=== PATIENT | female | born 1985 | race Two or more races ===

== ENCOUNTER → 2024-07-30 | Outpatient (CLI) | payer OTHER, SELFPAY ==
[2024-07-27 15:39] LABS: Basophils % (Auto) 0 % (0-2.5); Eosinophils # (Auto) 0.1 Thou/mm3 (0.0-0.5); Eosinophils % (Auto) 2 % (0-10); Hematocrit 37.4 % (36.0-46.0); Hemoglobin 12.3 g/dL (12.0-16.0); Immature Granulocytes % (Auto) 0 % (0-0); Immature Granulocytes Auto 0.01 Thou/mm3 (0.00-0.00); Lymphocytes # (Auto) 1.9 Thou/mm3 (1.0-4.8); Lymphocytes % (Auto) 35 % (10-50); Mean Corpuscular HGB Conc 32.9 g/dl (31.0-37.0); Mean Corpuscular Hemoglobin 28.3 pg (25.0-35.0); Mean Corpuscular Volume 86 fL (80-100); Monocytes # (Auto) 0.5 Thou/mm3 (0.0-0.8); Monocytes % (Auto) 9 % (0-12); Neutrophils # (Auto) 2.9 Thou/mm3 (1.8-7.7); Neutrophils % (Auto) 54 % (37-80); Nucleated Red Blood Cell % 0 /100 WBC (0); Platelet Count 241 Thou/mm3 (140-440); RDW Standard Deviation 41.5 fL (36.4-46.3); Red Blood Count 4.35 Miln/mm3 (4.00-5.20); White Blood Count 5.4 Thou/mm3 (3.6-11.0)
[2024-07-27 15:47] LABS: HCG,Qualitative Serum Negative
[2024-07-27 15:48] LABS: Partial Thromboplastin Time 27.1 Seconds (22.0-36.0); Prothrombin Time 11.2 Seconds (9.0-12.2)
--- NOTE | 2024-07-30 08:30 | XR_ITS ---
Examinations: Ultrasound-guided percutaneous breast biopsy, left breast 2:00 nodule Left breast sonography limited INDICATIONS: Left breast sonogram 05/01/2024 BI-RADS 4 suspicious nodule 2:00 position left breast. Exam date and time: July 30, 2024 0931 hours. Informed consent provided. Technique: A timeout was completed verifying correct patient, procedure, site, positioning, and special equipment if applicable Informed consent provided. The patient was placed in a supine position for the breast biopsy. Sonographic images of the breast were performed for localization of the suspicious nodule The patient's breast was prepped and draped in sterile fashion. Maximum sterile barrier technique, hand hygiene, ultrasound sterile technique 1% lidocaine was used to anesthetize the skin and breast adjacent to the suspicious nodule. Utilizing ultrasonographic guidance, 8 core biopsies were obtained of the suspicious nodule utilizing an 18-gauge BioPince needle. The specimens appears satisfactory. US guided breast biopsy marker placement. Estimated blood loss 3 cc. The patient tolerated the procedure well and there were no complications. Impression: Successful ultrasound-guided percutaneous breast biopsy, left breast 2:00 nodule. Ultrasound guided breast biopsy marker placement.
== END | disposition home or self-care (01) ==
LOC: SIRX 08:39
PROVIDERS: Radiology Diagnostic Radiology; PCP Internal Medicine; Referring Provider Internal Medicine; Visit Provider Internal Medicine
DX: N63.21 Unspecified lump in the left breast, upper outer quadrant (principal); Z01.812 Encounter for preprocedural laboratory examination
CPT/HCPCS: 19083; 36415; 84703; 85025; 85610; 85730; A4648

== ENCOUNTER → 2024-08-17 | Outpatient (CLI) | payer OTHER, SELFPAY ==
--- NOTE | 2024-08-17 07:00 | XR_ITS ---
Examination: MRI lumbar spine without contrast Date and time of exam: August 17, 2024 0744 hours INDICATIONS: Lower back pain radiating to both legs 3 years, worse the last year Technique: Multiple MRI axial and sagittal sections lumbar spine. Sagittal T2-weighted images, TR 3500, TE 118 T1 weighted transverse sections, TR 688 T8.5, T2-weighted sagittal sections T1 weighted sagittal sections TR 621, TE 30 T2 axial sections, TR 4, 190, TE 84. Findings: Adequate alignment lumbar vertebral bodies No lumbar fracture Disc desiccation L3-L4, L5-S1 Moderate disc narrowing posteriorly L5-S1 L5-S1 6 mm central left paracentral disc bulge contiguous with the left S1 nerve root L4-L5 no disc protrusion L3-L4 no disc protrusion L2-L3 no disc protrusion L1-L2 to millimeters central disc bulge IMPRESSION: L5-S1 6 mm central left paracentral disc bulge contiguous with the left S1 nerve root
== END | disposition home or self-care (01) ==
PROVIDERS: PCP Family Medicine; Referring Provider Family Medicine; Visit Provider Family Medicine
DX: M51.379 Other intervertebral disc degeneration, lumbosacral region without mention of lumbar back pain or lower extremity pain (principal)
CPT/HCPCS: 72148

== ENCOUNTER 2024-12-14 07:44 | Emergency (ER) | payer OTHER, SELFPAY ==
[2024-12-14 07:44] VITALS: BMI 41.5
--- NOTE | 2024-12-14 07:51 | XR_ITS ---
Examination: Complete OB ultrasound, less than 14 weeks, transabdominal Date and time of exam: December 14, 2024 0905 hours INDICATIONS: Vaginal bleeding lower abdominal pain today Technique: Obstetrical ultrasound images less than 14 weeks performed via transabdominal imaging Findings: Uterus 10.7 cm, intrauterine gestational sac 0.6 cm corresponding to 5 weeks 2 days gestational age No pole, no cardiac activity Right ovary 2.6 cm arterial flow Left ovary 3.4 cm arterial flow IMPRESSION: Empty intrauterine gestational sac corresponding to 5 weeks 2 days gestational age No pole, no cardiac activity Recommend short-term follow-up pelvic sonography to document viability
[2024-12-14 07:55] VITALS: BP 114/72; PULSE 81; RESP 18; TEMP 37; O2SAT 98
[2024-12-14 08:40] LABS: Basophils % (Auto) 0 % (0-2.5); Eosinophils # (Auto) 0.1 Thou/mm3 (0.0-0.5); Eosinophils % (Auto) 0 % (0-10); Hematocrit 37.4 % (36.0-46.0); Hemoglobin 12.9 g/dL (12.0-16.0); Immature Granulocytes % (Auto) 0 % (0-0); Immature Granulocytes Auto 0.04 Thou/mm3 (0.00-0.00); Lymphocytes # (Auto) 1.5 Thou/mm3 (1.0-4.8); Lymphocytes % (Auto) 14 % (10-50); Mean Corpuscular HGB Conc 34.5 g/dl (31.0-37.0); Mean Corpuscular Hemoglobin 28.9 pg (25.0-35.0); Mean Corpuscular Volume 84 fL (80-100); Monocytes # (Auto) 0.4 Thou/mm3 (0.0-0.8); Monocytes % (Auto) 4 % (0-12); Neutrophils # (Auto) 9.2 Thou/mm3 (1.8-7.7); Neutrophils % (Auto) 82 % (37-80); Nucleated Red Blood Cell % 0 /100 WBC (0); Platelet Count 273 Thou/mm3 (140-440); Red Blood Count 4.47 Miln/mm3 (4.00-5.20); White Blood Count 11.2 Thou/mm3 (3.6-11.0)
[2024-12-14 08:40] LABS: Collection Type, Urine Clean Catch
--- NOTE | 2024-12-14 08:40 | EDNOTE_ITS ---
<Statement entered by Christy Dhaliwal MD - 12/25/24 01:06> I, Christy Dhaliwal MD, have reviewed the history, exam, and assessment of the patient. I have evaluated the patient independently and agree with the plan of care documented by [ ]. All diagnostic studies were reviewed and discussed. I confirm the diagnosis as documented by the Resident. I was present during the Medical Decision Making for this patient. The patient's plan of care was created between myself and the Resident and consistent with our discussion of the patient's case. ED Abdominal Pain RME/HPI General Chief Complaint: Vaginal Bleeding Stated complaint: 6WK PREG, LOWER ABD PAIN AND SPOTTING Time seen by provider: 12/14/24 07:47 Arrival date/time: 12/14/24 07:44 RME / HPI RME / HPI narrative: The patient is a 39-year-old female with past medical history significant for diverticulitis presented to ED with chief complaint of severe left lower abdominal pain associated with mild vaginal bleeding. She reported that starting this morning she started having severe abdominal pain 8/10 in intensity, with no aggravating or relieving factors, associated with nausea and nonbilious vomiting including chills. She had her normal bowel movement yesterday morning. She denied any headache, lightheadedness, chest pain, SOB, any changes in urinary habit or leg swelling. Related Data Previous Rx's ?Medication ?Instructions ?Recorded dicyclomine 20 mg tablet 20 mg PO QID PRN abdominal p ain 12/21/23 #30 tabs pantoprazole 40 mg tablet,delayed 40 mg PO QDAY #30 ta bs 12/21/23 release (Protonix) acetaminophen 500 mg tablet 500 mg PO Q6H PRN pain #14 tabs 12/14/24 Allergies Allergy/AdvReac Type Severity Reaction Status Date / Time No Known Allergies Allergy Verified 12/14/24 07:46 Review of Systems Review of Systems Systems Reviewed: All systems reviewed, normal except as documented (Above) Past Medical History Past Medical History MUSCULOSKELETAL: Positive Arthritis (back) Family History FAMILY HISTORY: Positive Family Cardiac Disorders (dad- htn) and Family Cancer (mom- thyroid cancer); Negative Family Anesthesia Reaction Surgical History SURGICAL: Positive Oral Surgery (wisdom teeth removed) Social History SMOKING STATUS: Never smoker ED Exam Narrative Physical exam: General: Cooperative female, no acute distress, Alert and Oriented x 3 HEENT: Moist mucous membranes, oropharynx clear Neck: Supple, No masses, No JVD CVS: S1S2 Regular rate and rhythm, No murmurs, rubs or gallops Lungs: Clear to auscultation with no accessory use, no wheeze no rhonchi Abd: Soft, tenderness more over left lower quadrant, but diffuse tenderness throughout abdomen/ND, +BS, no organomegaly Ext: No edema, warm and well perfused Skin: No rash Psych: Appropriate mood and affect Course Quality Measures none Orders Category Date Time Status Insert IV NOW Care 12/14/24 07:59 Active US OB <= 14 weeks fetus Stat Exams 12/14/24 07:51 Completed US abdomen limited Stat Exams 12/14/24 08:41 Completed ABO/RH Type Stat Lab 12/14/24 08:03 Completed Beta HCG,Quantitative Stat Lab 12/14/24 08:03 Completed CBC Stat Lab 12/14/24 08:03 Completed Comprehensive Metabolic Panel Stat Lab 12/14/24 08:03 Completed Lipase Stat Lab 12/14/24 08:03 Completed Magnesium Stat Lab 12/14/24 08:03 Completed Phosphorous Stat Lab 12/14/24 08:03 Completed UA [Urinalysis] Stat Lab 12/14/24 08:33 Completed Urine Culture Stat Lab 12/14/24 08:33 Received Acetaminophen Tab [Tylenol ES Tab] Med 12/14/24 07:59 Discontinued 1,000 mg PO X1 ONE Ampicillin/Sulbac Inj [Unasyn Inj] 3 gm Med 12/14/24 08:58 Discontinued Sodium Chloride 0.9% (Pop) [NS 0.9% mini bag] 100 ml IV X1 Metoclopramide Inj [Reglan Inj] Med 12/14/24 07:59 Discontinued 10 mg IVP X1 ONE Morphine Inj Med 12/14/24 08:33 Discontinued 4 mg IVP X1 ONE Ondansetron Inj [Zofran Inj] Med 12/14/24 08:28 Discontinued 4 mg IVP X1 ONE Sodium Chloride 0.9% 1000 ml [Ns] 1,000 ml Med 12/14/24 07:59 Discontinued IV 999 mls/hr cefTRIAXone [Rocephin] 2 gm Med 12/14/24 08:38 Discontinued SODIUM CHLORIDE 0.9% (Popper) [Ns 0.9% (P)] 50 ml IV X1 metroNIDAZOLE/NS 500 MG IVPB [Flagyl 500 mg IV] Med 12/14/24 08:38 Discontinued 500 mg in 100 ml IV Q8HR Vital Signs Vital signs: Vital Signs Temperature 98.6 F 12/14/24 07:55 Pulse Rate 81 12/14/24 07:55 Respiratory Rate 18 12/14/24 07:55 Blood Pressure 114/72 12/14/24 07:55 Pulse Oximetry (%) 98 12/14/24 07:55 Oxygen Delivery Method Room Air 12/14/24 07:55 Abdominal Pain MDM MDM Narrative MDM Narrative:: The patient is a 39-year-old female with past medical history significant for diverticulitis presented to ED with chief complaint of severe left lower abdominal pain associated with mild vaginal bleeding. She reported that startin g this morning she started having severe abdominal pain 8/10 in intensity, with no aggravating or relieving factors, associated with nausea and nonbilious vomiting including chills. She had her normal bowel movement yesterday morning. She denied any headache, lightheadedness, chest pain, SOB, any changes in urinary habit or leg swelling. Her initial vitals were blood pressure 114/72, pulse 81, 18, temperature 98.6, saturating 98% on room air. Labs revealed white count of 11.2, sodium 134, potassium 3.8, blood sugar 111, with electrolytes WNL, and beta-hCG level of 4128. UA revealed pH 8.0, negative for UTI. ultrasound revealed Empty intrauterine gestational sac corresponding to 5 weeks 2 days gestational age, no pole, no cardiac activity. Distended bowel loops in the left mid abdomen observed in US abdomen. The patient received 1 L of bolus normal saline, IV ondansetron 4 mg x 1, morphine sulfate 4 mg IV x 1, and ampicillin sulbactam 3 g IV x 1. The patient was able to tolerate oral diet. She was planned to discharge home. The patient's management plan was discussed with my attending physician MD Martin Quintanilla MD, PGY2 Patient data External records reviewed:: [facility] previous records Clinical information provided by:: patient Social determinants that could affect healthcare access:: none Patient has the following chronic illnesses:: See above How is presenting disease/condition affected by chronic disease/condition?: uneffected by Evaluation data The following diagnostics were reviewed and interpreted by me:: lab results and radiology exam(s) Lab and/or radiology exams considered but not ordered:: None Interpretation Summary: See above Medications / Prescriptions Medications or Prescriptions considered but not ordered:: None Medication administrations:: Medication Administration History Discontinued Medications Acetaminophen (Acetaminophen 500 Mg Tablet) 1,000 mg PO X1 ONE Stop: 12/14/24 08:00 Last Admin: 12/14/24 08:50 Dose: Not Given Documented By: DO Non-Admin Reason: Cancelled by Provider Sodium Chloride (Ns) 1,000 mls @ 999 mls/hr IV .Q1H1M ONE Stop: 12/14/24 08:59 Last Admin: 12/14/24 08:46 Dose: 999 mls/hr Documented By: DO Ceftriaxone Sodium 2 gm/ (Sodium Chloride) 50 mls @ 100 mls/hr IV X1 ONE Stop: 12/14/24 09:07 Last Admin: 12/14/24 09:20 Dose: Not Given Documented By: DO Non-Admin Reason: Cancelled by Provider Metronidazole (Flagyl 500 Mg Iv) 500 mg in 100 mls @ 200 mls/hr IV Q8HR OBINNA Stop: 12/21/24 08:37 Last Admin: 12/14/24 09:20 Dose: Not Given Documented By: DO Non-Admin Reason: Cancelled by Provider Ampicillin Sodium/Sulbactam (Sodium 3 gm/ Sodium Chloride) 100 mls @ 200 mls/hr IV X1 ONE Stop: 12/14/24 08:59 Last Admin: 12/14/24 10:05 Dose: 200 mls/hr Documented By: DO Metoclopramide HCl (Metoclopramide Inj 5 Mg/Ml Vial 2 Ml) 10 mg IVP X1 ONE; Protocol Stop: 12/14/24 08:00 Last Admin: 12/14/24 08:51 Dose: Not Given Documented By: DO Non-Admin Reason: Cancelled by Provider Morphine Sulfate (Morphine Sulf Inj 10 Mg/Ml Vial) 4 mg IVP X1 ONE Stop: 12/14/24 08:34 Last Admin: 12/14/24 08:48 Dose: 4 mg Documented By: DO Ondansetron HCl (Ondansetron Inj 2 Mg/Ml Inj 2 Ml) 4 mg IVP X1 ONE; Protocol Stop: 12/14/24 08:29 Last Admin: 12/14/24 08:46 Dose: 4 mg Documented By: DO See above Consultations Consultation(s) initiated? (list below): No Diagnosis Differential diagnosis abdominal pain: acute appendicitis, calculus of kidney, constipation, diverticulitis and pancreatitis Most likely diagnosis given after review of the tests above:: Constipation leading to ileitis Admission Indicated Admission indicated?: not indicated Admission Request Was there a request for admission?: No Disposition Plan Disposition Plan: Discharge Discharge Attestation Discharge Attestation: The patient and all family members were given an opportunity to ask questions and understood the discharge instructions. Discharge instructions specifically effects, indications for sooner follow up or return to the emergency department, and the expected course of current diagnosis. Patient condition: Stable Discharge Plan Plan Patient Disposition: HOME (Self Care) Prescriptions/Referrals Prescriptions/Med Rec: New acetaminophen 500 mg tablet 500 mg PO Q6H PRN (Reason: pain) Qty: 14 0RF No Action pantoprazole [Protonix] 40 mg tablet,delayed release (DR/EC) 40 mg PO QDAY Qty: 30 0RF dicyclomine 20 mg tablet 20 mg PO QID PRN (Reason: abdominal pain) Qty: 30 0RF Referrals: Andre Gardiner MD [Primary Care Provider] - In 1 week Problem List Clinical Impression: Threatened , Abdominal pain affecting Patient/Caregiver Discharge Instructions Discharge Activity: activity as tolerated Education Materials: ED Possible Miscarriage ... Additional Instructions: You were discharged by Dr. De Anda with the following recommendations: Please follow-up with your PCP or [facility] within 48 hours of discharge, and gait beta-hCG level checked. On 12/14/2024 at 8 AM your beta-hCG level was 4128. It should be rising by then. And also make sure to get ultrasound within 2 to 3-weeks of discharge to look for life. You have been started on: -Tylenol 500 Mg every 6 hourly as needed for pain Continue taking all other medicines as prescribed -Recommended to return back to emergency department if your symptoms persists or worsens Print Language: Upper Sorbian Stand Alone Forms: [employer]i Award Info., Patient Portal Info Letter
--- NOTE | 2024-12-14 08:41 | XR_ITS ---
Examination: Abdomen sonogram, Limited Date and time of exam: 03/16/2025 0924 hours INDICATIONS: Onset lower abdominal pain today Technique: Real-time ayala scale transabdominal sonographic images of the upper abdomen obtained. Findings: Distended bowel loop at the area of concern in the left mid abdomen IMPRESSION: Distended bowel loop in the left midabdomen at the area concern
[2024-12-14] MEDS: SODIUM CHLORIDE 0.9% 1000 ML 1,000 ML 999 ML IV (08:46)
[2024-12-14] MEDS: ONDANSETRON INJ 2 MG/ML INJ 2 ML 4 MG IVP (08:46)
[2024-12-14] MEDS: MORPHINE SULF INJ 10 MG/ML VIAL 4 MG IVP (08:48)
[2024-12-14 08:49] LABS: Alanine Aminotransferase 14 U/L (10-49); Albumin, Serum 4.5 gm/dL (3.5-5.0); Albumin/Globulin Ratio 1.6 (1.2-2.2); Alkaline Phosphatase 80 U/L (46-116); Anion Gap 10 (7-16); Aspartate Amino Transferase 20 U/L (0-34); BUN/Creatinine Ratio 12 Ratio (12-20); Bilirubin,Total 0.6 mg/dL (0.3-1.2); Blood Urea Nitrogen 7 mg/dL (9-23); Calcium 9.5 mg/dL (8.3-10.6); Calcium (Corrected) 9.5 mg/dL (8.5-10.1); Carbon Dioxide 22.5 mMol/L (20.0-31.0); Chloride 102 mMol/L (98-107); Creatinine (Component) 0.6 mg/dL (0.6-1.3); Estimated Creatinine Clearance 161.2 mL/min (>60); Globulin 2.9 gm/dL (2.3-3.5); Glucose 111 mg/dL (74-106); Lipase 29 U/L (12-53); Osmolality,Calculated 267 (275-295); Potassium 3.8 mMol/L (3.4-5.1); Sodium 134 mMol/L (136-145); Total Protein 7.4 gm/dL (5.7-8.2); eGFR > 60 See Note
[2024-12-14 08:51] LABS: Bilirubin,Urine Negative (Negative); Blood,Urine Negative (Negative); Clarity,Urine Clear (Clear/Hazy); Color,Urine Lt-Yellow (Lt Yel-Yel); Glucose, Urine Negative (Negative); Ketones,Urine Negative (Negative); Leukocyte Esterase,Urine Negative (Negative); Nitrite,Urine Negative (Negative); Protein,Urine Negative (Neg - Trace); RBC,Urine 1 /hpf (0-3); Specific Gravity,Urine 1.014 (1.001-1.035); Squamous Epithelial Cell,Urine < 1 /hpf (0-5); Urobilinogen,Urine Negative mg/dL (0.0-1.0); WBC,Urine < 1 /hpf (0-5)
[2024-12-14 09:06] LABS: Magnesium 1.8 mg/dL (1.6-2.6); Phosphorous 3.2 mg/dL (2.4-5.1)
[2024-12-14 09:19] LABS: Beta HCG,Quantitative 4128 mIU/mL (<5.0)
--- NOTE | 2024-12-14 09:20 | PC.NURSE ---
called and clarified with pharmacist Aminata that Unasyn is safe to give in . will administer when pt gets back from ultrasound
[2024-12-14] MEDS: AMPICILLIN/SULBAC INJ 3 GM in SODIUM CHLORIDE 0.9% (POP) 100 ML IV (10:05)
[2024-12-14 10:26] VITALS: BP 116/78; PULSE 63; RESP 18; TEMP 36.4; O2SAT 99
== END 2024-12-14 11:46 | disposition home or self-care (01) ==
PROVIDERS: Nurse Practitioner Primary Care; Emergency Provider Student in an Organized Health Care Education/Training Program; PCP Family Medicine
DX: O20.0 Threatened abortion (principal); O99.611 Diseases of the digestive system complicating pregnancy, first trimester; K63.89 Other specified diseases of intestine; Z3A.01 Less than 8 weeks gestation of pregnancy
CPT/HCPCS: 36415; 76705; 76801; 80053; 81001; 83690; 83735; 84100; 84702; 85025; 86900; 86901; 87086; 96361; 96365; 96375; 99284; J0295; J2270; J2405; J7030

== ENCOUNTER → 2024-12-17 | Outpatient (CLI) | payer OTHER, SELFPAY ==
[2024-12-17 12:42] LABS: Beta HCG,Quantitative 8546 mIU/mL (<5.0)
== END | disposition home or self-care (01) ==
LOC: COPL 10:49
PROVIDERS: PCP Family Medicine; Referring Provider Family Medicine; Visit Provider Family Medicine
DX: N91.2 Amenorrhea, unspecified (principal)
CPT/HCPCS: 36415; 84702

== ENCOUNTER → 2024-12-20 | Outpatient (CLI) | payer OTHER, SELFPAY ==
[2024-12-20 08:46] LABS: Collection Type, Urine Clean Catch
[2024-12-20 09:16] LABS: Bilirubin,Urine Negative (Negative); Blood,Urine Negative (Negative); Clarity,Urine Clear (Clear/Hazy); Color,Urine Lt-Yellow (Lt Yel-Yel); Glucose, Urine Negative (Negative); Ketones,Urine Negative (Negative); Leukocyte Esterase,Urine Positive (Negative); Nitrite,Urine Negative (Negative); PH,Urine 6.5 (5.0-7.0); Protein,Urine Negative (Neg - Trace); RBC,Urine 3 /hpf (0-3); Specific Gravity,Urine 1.021 (1.001-1.035); Squamous Epithelial Cell,Urine 5 /hpf (0-5); Urobilinogen,Urine Negative mg/dL (0.0-1.0); WBC,Urine < 1 /hpf (0-5)
[2024-12-20 09:17] LABS: Basophils % (Auto) 0 % (0-2.5); Eosinophils # (Auto) 0.1 Thou/mm3 (0.0-0.5); Eosinophils % (Auto) 1 % (0-10); Hematocrit 37.9 % (36.0-46.0); Hemoglobin 12.7 g/dL (12.0-16.0); Immature Granulocytes % (Auto) 0 % (0-0); Immature Granulocytes Auto 0.02 Thou/mm3 (0.00-0.00); Lymphocytes # (Auto) 1.7 Thou/mm3 (1.0-4.8); Lymphocytes % (Auto) 21 % (10-50); Mean Corpuscular HGB Conc 33.5 g/dl (31.0-37.0); Mean Corpuscular Hemoglobin 29.1 pg (25.0-35.0); Mean Corpuscular Volume 87 fL (80-100); Monocytes # (Auto) 0.4 Thou/mm3 (0.0-0.8); Monocytes % (Auto) 5 % (0-12); Neutrophils # (Auto) 6.1 Thou/mm3 (1.8-7.7); Neutrophils % (Auto) 73 % (37-80); Nucleated Red Blood Cell % 0 /100 WBC (0); Platelet Count 260 Thou/mm3 (140-440); RDW Standard Deviation 40.8 fL (36.4-46.3); Red Blood Count 4.36 Miln/mm3 (4.00-5.20); White Blood Count 8.4 Thou/mm3 (3.6-11.0)
[2024-12-20 09:19] LABS: Amphetamine/Methamp Scrn,U Negative (Negative); Barbiturate Screen,Urine Negative (Negative); Benzodiazepines Screen,Urine Negative (Negative); Benzoylecgonine Screen, Ur Negative (Negative); Fentanyl Screen,Urine Negative (Negative); Opiate Screen,Urine Negative (Negative); THC Screen,Urine Negative (Negative)
[2024-12-20 09:25] LABS: Glucose Estimated Average 97 mg/dL (80-131)
[2024-12-20 09:45] LABS: Syphilis Nonreactive (Nonreactive)
[2024-12-20 10:09] LABS: Hepatitis A Antibody IgM Non Reactive (Non React); Hepatitis B Core Antibody IgM Non Reactive (Non React); Hepatitis B Surface Antigen Non Reactive (Non React); Hepatitis C Antibody Non Reactive (Non React); Rubella, IgG Antibody Reactive (Immune)
[2024-12-20 10:45] LABS: HIV (1&2) Antibody Rapid Non-Reactive
[2024-12-20 12:34] LABS: Chlamydia trachomatis PCR Negative (Not Detect); Neisseria Gonorrhoeae DNA PCR Negative (Not Detect); Trichomonas Negative (Negative)
== END | disposition home or self-care (01) ==
LOC: COPL 07:19
PROVIDERS: PCP Family Medicine; Referring Provider Obstetrics & Gynecology; Visit Provider Obstetrics & Gynecology
DX: Z34.91 Encounter for supervision of normal pregnancy, unspecified, first trimester (principal)
CPT/HCPCS: 36415; 80074; 80307; 81001; 83036; 85025; 86703; 86762; 86780; 86900; 86901; 87491; 87591; 87661

== ENCOUNTER 2025-01-10 17:28 | Emergency (ER) | payer OTHER, SELFPAY ==
[2025-01-10 19:39] VITALS: BP 118/83; PULSE 77; RESP 16; TEMP 37.1; O2SAT 98; BMI 39.9
--- NOTE | 2025-01-10 19:58 | XR_ITS ---
Examination: OB Transvaginal ultrasound of the pelvis, complete Technique: Transvaginal sonographic images pelvis performed using ayala scale imaging Exam date and time: January 10, 2025, 2020 hours INDICATIONS: Empty intrauterine gestational sac and OB sonogram December 14, 2024, vaginal bleeding and pelvic pain 11 weeks FINDINGS: Uterus 10.1 cm pole 0.6 cm corresponds to 6 weeks 2 days gestational age No cardiac motion Right ovary is obscured by bowel gas Left ovary 2.8 cm arterial flow IMPRESSION: Intrauterine gestation corresponding to 6 weeks 2 days gestational age No cardiac activity Recommend continued short-term follow-up pelvic sonography exclude demise
--- NOTE | 2025-01-10 19:58 | PD.EDRME ---
Rapid Medical Screening Exam RME Arrival date/time: 01/10/25 17:28 39F at approximately 11 weeks and with no significant PMH presents to ED with 2 days of pelvic pain/cramping and vaginal bleeding. OB is Dr. Esparza. Chief Complaint: Vaginal Bleeding Vital signs: Vital Signs Temperature 98.8 F 01/10/25 19:39 Pulse Rate 77 01/10/25 19:39 Respiratory Rate 16 01/10/25 19:39 Blood Pressure 118/83 01/10/25 19:39 Pulse Oximetry (%) 98 01/10/25 19:39 Oxygen Delivery Method Room Air 01/10/25 19:39
[2025-01-10 20:53] LABS: Basophils % (Auto) 0 % (0-2.5); Eosinophils # (Auto) 0.1 Thou/mm3 (0.0-0.5); Eosinophils % (Auto) 1 % (0-10); Hematocrit 37.9 % (36.0-46.0); Hemoglobin 12.9 g/dL (12.0-16.0); Immature Granulocytes % (Auto) 0 % (0-0); Immature Granulocytes Auto 0.02 Thou/mm3 (0.00-0.00); Lymphocytes # (Auto) 2.7 Thou/mm3 (1.0-4.8); Lymphocytes % (Auto) 27 % (10-50); Mean Corpuscular Hemoglobin 28.4 pg (25.0-35.0); Mean Corpuscular Volume 84 fL (80-100); Monocytes # (Auto) 0.5 Thou/mm3 (0.0-0.8); Monocytes % (Auto) 5 % (0-12); Neutrophils # (Auto) 6.7 Thou/mm3 (1.8-7.7); Neutrophils % (Auto) 66 % (37-80); Nucleated Red Blood Cell % 0 /100 WBC (0); Platelet Count 305 Thou/mm3 (140-440); RDW Standard Deviation 39.8 fL (36.4-46.3); Red Blood Count 4.54 Miln/mm3 (4.00-5.20); White Blood Count 10.1 Thou/mm3 (3.6-11.0)
[2025-01-10 21:03] LABS: Collection Type, Urine Clean Catch
[2025-01-10 21:07] LABS: Alanine Aminotransferase 15 U/L (10-49); Albumin, Serum 4.6 gm/dL (3.5-5.0); Albumin/Globulin Ratio 1.6 (1.2-2.2); Alkaline Phosphatase 76 U/L (46-116); Anion Gap 11 (7-16); Aspartate Amino Transferase 20 U/L (0-34); BUN/Creatinine Ratio 10 Ratio (12-20); Bilirubin,Total 0.4 mg/dL (0.3-1.2); Blood Urea Nitrogen 7 mg/dL (9-23); Calcium 9.4 mg/dL (8.3-10.6); Calcium (Corrected) 9.4 mg/dL (8.5-10.1); Carbon Dioxide 25.2 mMol/L (20.0-31.0); Chloride 103 mMol/L (98-107); Creatinine (Component) 0.7 mg/dL (0.6-1.3); Estimated Creatinine Clearance 135.1 mL/min (>60); Globulin 2.9 gm/dL (2.3-3.5); Glucose 99 mg/dL (74-106); Osmolality,Calculated 275 (275-295); Potassium 3.6 mMol/L (3.4-5.1); Sodium 139 mMol/L (136-145); Total Protein 7.5 gm/dL (5.7-8.2); eGFR > 60 See Note
[2025-01-10 21:09] LABS: Bilirubin,Urine Negative (Negative); Blood,Urine 1+ (Negative); Clarity,Urine Clear (Clear/Hazy); Color,Urine Yellow (Lt Yel-Yel); Glucose, Urine Negative (Negative); Ketones,Urine Negative (Negative); Leukocyte Esterase,Urine Negative (Negative); Nitrite,Urine Negative (Negative); Protein,Urine Trace (Neg - Trace); RBC,Urine 4 /hpf (0-3); Specific Gravity,Urine 1.031 (1.001-1.035); Squamous Epithelial Cell,Urine 3 /hpf (0-5); WBC,Urine 1 /hpf (0-5)
[2025-01-10 21:35] LABS: Beta HCG,Quantitative 33690 mIU/mL (<5.0)
[2025-01-10 21:51] VITALS: BP 119/68; PULSE 88; RESP 20; TEMP 36.8; O2SAT 97
--- NOTE | 2025-01-10 21:58 | EDNOTE_ITS ---
<Statement entered by Christy Dhaliwal MD - 01/11/25 23:29> As co-signing physician, I was present and available for consult prn. I concur with the plan and care as documented by the midlevel provider. ED OB Contraction Preg RMI/HPI General Chief complaint: Vaginal Bleeding Stated complaint: VAG BLEEDING, LOWER BACK PAIN Time Seen by Provider: 01/10/25 21:57 Arrival date/time: 01/10/25 17:28 RME / HPI RME / HPI Narrative: 39-year-old female patient 2 para 1, about 11 weeks , came in for evaluation regarding vaginal bleeding. Has been having worsening vaginal bleeding for the last 2 days associated with pelvic cramping. Denies any vomiting, denies any fever denies any other complaints. No medication was taken prior to arrival. Related Data Previous Rx's ?Medication ?Instructions ?Recorded dicyclomine 20 mg tablet 20 mg PO QID PRN abdominal p ain 12/21/23 #30 tabs pantoprazole 40 mg tablet,delayed 40 mg PO QDAY #30 ta bs 12/21/23 release (Protonix) acetaminophen 500 mg tablet 500 mg PO Q6H PRN pain #14 tabs 12/14/24 Allergies Allergy/AdvReac Type Severity Reaction Status Date / Time No Known Allergies Allergy Verified 12/14/24 07:46 Review of Systems Review of Systems Narrative Review of Systems: Review of system reviewed and within normal limits except mentioned in HPI ED Exam Narrative Physical exam: VITAL SIGNS: Reviewed. GENERAL APPEARANCE: Alert and interactive, follows commands, no acute distress, HEAD AND FACE: Non-traumatic. ENT: PERRL, pink conjunctivitis, eyelid no trauma, Mucous membrane moist. NECK: Supple, nontender, no nuchal rigidity. CHEST: No tenderness, no crepitus, no paradoxical movement, no retractions. LUNGS: Clear, well ventilated, symmetric, no rales, no wheezing, no ronchi, no stridor, good breath sounds bilaterally. HEART: Regular rate, regular rhythm, no murmur, no gallops. ABDOMEN: Soft, positive bowel sounds, nondistended, no guarding, nontender, no rebound, no masses, RECTAL: Deferred. GENITAL: Deferred. NEUROLOGICAL: Gross motor function intact sensory function intact, Appropriate for age. MUSCULOSKELETAL: low back nontender, full range of motion. EXTREMITIES: Nontender, full range of motion. SKIN: Color pink, dry, no rash, no lacerations, no abrasions, no contusions. LYMPHATICS: Deferred. Course Quality Measures none Orders Category Date Time Status US OB transvaginal Stat Exams 01/10/25 19:58 Completed ABO/RH Type Stat Lab 01/10/25 20:09 Completed Beta HCG,Quantitative Stat Lab 01/10/25 20:09 Completed CBC Stat Lab 01/10/25 20:09 Completed CMP [Comprehensive Metabolic Panel] Stat Lab 01/10/25 20:09 Completed UA [Urinalysis] Stat Lab 01/10/25 20:51 Completed Urine Culture Stat Lab 01/10/25 20:51 Received Vital Signs Vital signs: Vital Signs Temperature 98.8 F 01/10/25 19:39 Pulse Rate 77 01/10/25 19:39 Respiratory Rate 16 01/10/25 19:39 Blood Pressure 118/83 01/10/25 19:39 Pulse Oximetry (%) 98 01/10/25 19:39 Oxygen Delivery Method Room Air 01/10/25 19:39 Vaginal Bleeding MDM Narrative MDM Narrative: 39-year-old female patient 2 para 1, about 11 weeks , came in for evaluation regarding vaginal bleeding. Has been having worsening vaginal bleeding for the last 2 days associated with pelvic cramping. Denies any vomiting, denies any fever denies any other complaints. No medication was taken prior to arrival. Patient CBC came back unremarkable. Urinalysis no UTI trans vaginal ultrasound showed Intrauterine gestation corresponding to 6 weeks 2 days gestational age No cardiac activity Recommend continued short-term follow-up pelvic sonography exclude demise Results discussed with the patient. Patient was also given a copy of her ultrasound. Patient was advised to return to emergency room in 2 to 3 days for repeat ultrasound and hCG to confirm demise. Patient data External records reviewed:: None Clinical information provided by:: none Social determinants that could affect healthcare access:: none Patient has the following chronic illnesses:: None How is presenting disease/condition affected by chronic disease/condition?: no chronic disease Evaluation data The following diagnostics were reviewed and interpreted by me:: lab results and radiology exam(s) Lab and/or radiology exams considered but not ordered:: None Interpretation Summary: See results MDM Medications / Prescriptions Medications or Prescriptions considered but not ordered:: None Medication administrations:: None Consultations Consultation(s) initiated? (list below): No Diagnosis Vaginal Bleeding Differential Diagnosis: missed , threatened , incomplete and vaginal bleeding Most likely diagnosis given after review of the tests above:: Vaginal bleeding in early suspect demise Admission Indicated Admission indicated?: not indicated Admission Request Was there a request for admission?: No Disposition Plan Disposition Plan: Discharge Discharge Attestation Discharge Attestation: The patient and all family members were given an opportunity to ask questions and understood the discharge instructions. Discharge instructions specifically effects, indications for sooner follow up or return to the emergency department, and the expected course of current diagnosis. Patient condition: Stable Discharge Plan Plan Patient Disposition: HOME (Self Care) Discharge Disposition comment: Stable Prescriptions/Referrals Prescriptions/Med Rec: No Action pantoprazole [Protonix] 40 mg tablet,delayed release (DR/EC) 40 mg PO QDAY Qty: 30 0RF dicyclomine 20 mg tablet 20 mg PO QID PRN (Reason: abdominal pain) Qty: 30 0RF acetaminophen 500 mg tablet 500 mg PO Q6H PRN (Reason: pain) Qty: 14 0RF Referrals: Andre Gardiner MD [Primary Care Provider] - In 1 week Problem List Clinical Impression: Vaginal bleeding affecting early Patient/Caregiver Discharge Instructions Education Materials: Bleeding During Early Additional Instructions: Thank you for the opportunity for serving you today. You are stable for discharged . You are advised to: Follow-up with your PCP in 1 to 2 days Return to ED for worsening of symptoms Pelvic rest no sex for 1 week until seen by [facility]. Return to emergency room in 2 days for repeat hCG and ultrasound Print Language: Telugu Stand Alone Forms: Kathi Award Info., Patient Portal Info Letter PA/TELEPHONY ENGINEER Supervising Physician PA/TELEPHONY ENGINEER Supervising Physician: MD Isra
== END 2025-01-10 22:13 | disposition home or self-care (01) ==
PROVIDERS: Physician Assistant; Emergency Provider Emergency Medicine; PCP Family Medicine
DX: O20.9 Hemorrhage in early pregnancy, unspecified (principal); Z3A.11 11 weeks gestation of pregnancy
CPT/HCPCS: 36415; 76817; 80053; 81001; 84702; 85025; 86900; 86901; 87086; 99284

== ENCOUNTER 2025-01-11 17:52 | Emergency (ER) | payer OTHER, SELFPAY ==
[2025-01-11 18:09] VITALS: BP 128/88; PULSE 114; RESP 20; TEMP 37; O2SAT 98; BMI 40.2
--- NOTE | 2025-01-11 18:31 | PD.EDRME ---
Rapid Medical Screening Exam [facility] Arrival date/time: 01/11/25 17:52 39F at approximately 11 weeks and with no significant PMH presents to ED with worsening vaginal bleeding. Patient was here yesterday. Chief Complaint: Vaginal Bleeding Vital signs: Vital Signs Temperature 98.6 F 01/11/25 18:09 Pulse Rate 114 H 01/11/25 18:09 Respiratory Rate 20 01/11/25 18:09 Blood Pressure 128/88 H 01/11/25 18:09 Pulse Oximetry (%) 98 01/11/25 18:09 Oxygen Delivery Method Room Air 01/11/25 18:09
[2025-01-11] MEDS: ACETAMINOPHEN 500 MG TABLET 1000 MG PO (18:42)
[2025-01-11 19:28] LABS: Basophils % (Auto) 0 % (0-2.5); Eosinophils # (Auto) 0.1 Thou/mm3 (0.0-0.5); Eosinophils % (Auto) 1 % (0-10); Hematocrit 38.4 % (36.0-46.0); Hemoglobin 13.1 g/dL (12.0-16.0); Immature Granulocytes % (Auto) 0 % (0-0); Immature Granulocytes Auto 0.03 Thou/mm3 (0.00-0.00); Lymphocytes # (Auto) 2.9 Thou/mm3 (1.0-4.8); Lymphocytes % (Auto) 27 % (10-50); Mean Corpuscular HGB Conc 34.1 g/dl (31.0-37.0); Mean Corpuscular Hemoglobin 28.7 pg (25.0-35.0); Mean Corpuscular Volume 84 fL (80-100); Monocytes # (Auto) 0.6 Thou/mm3 (0.0-0.8); Monocytes % (Auto) 5 % (0-12); Neutrophils # (Auto) 7.2 Thou/mm3 (1.8-7.7); Neutrophils % (Auto) 67 % (37-80); Nucleated Red Blood Cell % 0 /100 WBC (0); Platelet Count 206 Thou/mm3 (140-440); RDW Standard Deviation 39.7 fL (36.4-46.3); Red Blood Count 4.56 Miln/mm3 (4.00-5.20); White Blood Count 10.9 Thou/mm3 (3.6-11.0)
[2025-01-11 20:17] LABS: Alanine Aminotransferase 16 U/L (10-49); Albumin, Serum 4.6 gm/dL (3.5-5.0); Albumin/Globulin Ratio 1.6 (1.2-2.2); Alkaline Phosphatase 77 U/L (46-116); Anion Gap 12 (7-16); Aspartate Amino Transferase 26 U/L (0-34); BUN/Creatinine Ratio 6 Ratio (12-20); Bilirubin,Total 0.3 mg/dL (0.3-1.2); Blood Urea Nitrogen 5 mg/dL (9-23); Calcium 9.5 mg/dL (8.3-10.6); Calcium (Corrected) 9.5 mg/dL (8.5-10.1); Carbon Dioxide 19.5 mMol/L (20.0-31.0); Chloride 106 mMol/L (98-107); Creatinine (Component) 0.8 mg/dL (0.6-1.3); Estimated Creatinine Clearance 118.7 mL/min (>60); Globulin 2.9 gm/dL (2.3-3.5); Glucose 108 mg/dL (74-106); Osmolality,Calculated 272 (275-295); Potassium 4.2 mMol/L (3.4-5.1); Sodium 137 mMol/L (136-145); Total Protein 7.5 gm/dL (5.7-8.2); eGFR > 60 See Note
--- NOTE | 2025-01-11 21:16 | XR_ITS ---
Examination: OB Transvaginal ultrasound of the pelvis, complete Technique: Transvaginal sonographic images pelvis performed using ayala scale imaging Exam date and time: January 11, 2025 10:18 PM INDICATIONS: Vaginal bleeding beginning 5 days ago, intrauterine gestation 6 weeks 2 days no cardiac motion ultrasound January 10, 2025 FINDINGS: Thickened heterogeneous endometrial stripe, uterus 8.8 cm No recognizable intrauterine gestation Right ovary 2.7 cm arterial flow Left ovary 3.4 cm arterial flow IMPRESSION: Incomplete spontaneous , positive for retained product of conception
--- NOTE | 2025-01-11 21:18 | PD.EDVAGBL ---
ED OB Contraction Preg RMI/HPI General Chief complaint: Vaginal Bleeding Stated complaint: Vaginal bleeding heavy, 11 weeks OB Arrival date/time: 01/11/25 17:52 RME / HPI RME / HPI Narrative: 01/11/25 17:52 39F at approximately 11 weeks and with no significant PMH presents to ED with worsening vaginal bleeding. Patient was here yesterday. DR DHALIWAL MAIN ED EVALUATION: 39 y/o female with Hx of Diverticulitis presents to ED c/o heavy vaginal bleeding and pelvic cramping x 3 days. Patient is about 11 weeks and is . Patient was seen yesterday but believes she may have expelled the baby. Patient denies fever, nausea, vomiting or any other associated symptoms or aggravating factors. No modifying factors, no radiation, no migration. No otherpain reported overall. Related Data Previous Rx's ?Medication ?Instructions ?Recorded dicyclomine 20 mg tablet 20 mg PO QID PRN abdominal pain 12/21/23 #30 tabs pantoprazole 40 mg tablet,delayed 40 mg PO QDAY #30 tabs 12/21/23 release (Protonix) acetaminophen 500 mg tablet 500 mg PO Q6H PRN pain #14 tabs 12/14/24 methylergonovine 0.2 mg tablet 0.2 mg PO TID 3 days #9 tabs 01/12/25 Allergies Allergy/AdvReac Type Severity Reaction Status Date / Time No Known Allergies Allergy Verified 01/11/25 17:56 Review of Systems Review of Systems Systems Reviewed: All systems reviewed, normal except as documented Past Medical History Past Medical History GASTROINTESTINAL: Positive Gastrointestinal Disorders (H Pylori) and Diverticulitis MUSCULOSKELETAL: Positive Arthritis Family History FAMILY HISTORY: Positive Family Cardiac Disorders and Family Cancer Surgical History SURGICAL: Positive Oral Surgery ED Exam Narrative Physical exam: GENERAL APPEARANCE: alert and oriented x 4, well-developed, well-nourished, no acute distress VITALS: All vitals were reviewed and the pulse ox is 98% on room air, which is normal according to my interpretation. HEENT: Normocephalic, atraumatic; pupils equal, round, reactive to light; EOMI; mucous membranes pink, moist; oropharynx clear NECK: Supple LUNGS: CTABL; no wheezes, no rales, no rhonchi HEART: Regular rate, regular rhythm; normal S1, S2; no murmurs ABDOMEN: non distended; normal BS; soft, no tenderness, no guarding, no rebound; no masses, no organomegaly, no hernia PELVIC: just passed placental tissue BACK: no CVA tenderness EXTREMITIES: atraumatic; no edema NEUROLOGIC: awake; alert and oriented x4; cranial nerves II-XII grossly intact; no focal sensory or motor deficits PSYCHIATRIC: appropriate mood and affect SKIN: warm, dry, normal color; no rashes Female telecommunications operator present at bedside during pelvic examination. Course Quality Measures none Orders Category Date Time Status US OB transvaginal Stat Exams 01/11/25 21:16 Completed Beta HCG,Quantitative Stat Lab 01/11/25 19:09 Completed CBC Stat Lab 01/11/25 19:09 Completed CBC Stat Lab 01/12/25 01:11 Completed CMP [Comprehensive Metabolic Panel] Stat Lab 01/11/25 19:09 Completed Type and Screen Stat Lab 01/11/25 19:09 Completed Acetaminophen Tab [Tylenol ES Tab] Med 01/11/25 18:32 Discontinued 1,000 mg PO X1 ONE Vital Signs Vital signs: Vital Signs Temperature 98.6 F 01/11/25 18:09 Pulse Rate 114 H 01/11/25 18:09 Respiratory Rate 20 01/11/25 18:09 Blood Pressure 128/88 H 01/11/25 18:09 Pulse Oximetry (%) 98 01/11/25 18:09 Oxygen Delivery Method Room Air 01/11/25 18:09 Vaginal Bleeding MDM Narrative MDM Narrative: Scribe Attestation: ISuzie am scribing for and in the presence of Dr. Dhaliwal. Provider Notation: Although this document has been carefully reviewed, there may still be some phonetic and other typographical errors.? These errors are purely grammatical due to imperfections in the software program and should not be construed in any way to? compromise the substance of the patient's medical care during this visit. Patient data External records reviewed:: [facility] previous records (Reviewed prior ED records from 01/10/25. Patient was seen for Vaginal bleeding affecting early .) Clinical information provided by:: patient Social determinants that could affect healthcare access:: none Patient has the following chronic illnesses:: Arthritis, Diverticulitis How is presenting disease/condition affected by chronic disease/condition?: uneffected by Evaluation data The following diagnostics were reviewed and interpreted by me:: lab results and radiology exam(s) Lab and/or radiology exams considered but not ordered:: None Interpretation Summary: RADIOLOGY Transvaginal US: Patient: FRED SHERIFF. Record#: [id number] Birthdate: 1985 Age/Sex: 39 / F Location: [facility] Attending Dr: Ordering Physician: Christy Dhaliwal MD Date of Service: 01/11/25 Procedure(s): US OB transvaginal Accession Number(s): [id number] cc: Pratik Gregg MD; Christy Dhaliwal MD; Andre Gardiner MD~ Examination: OB Transvaginal ultrasound of the pelvis, complete Technique: Transvaginal sonographic images pelvis performed using ayala scale imaging Exam date and time: January 11, 2025 10:18 PM INDICATIONS: Vaginal bleeding beginning 5 days ago, intrauterine gestation 6 weeks 2 days no cardiac motion ultrasound January 10, 2025 FINDINGS: Thickened heterogeneous endometrial stripe, uterus 8.8 cm No recognizable intrauterine gestation Right ovary 2.7 cm arterial flow Left ovary 3.4 cm arterial flow IMPRESSION: Incomplete spontaneous , positive for retained product of conception Dictated By: Pratik Gregg MD Signed By: <Electronically signed by Pratik Gregg MD in OV> 01/11/25 2355 Medications / Prescriptions Medications or Prescriptions considered but not ordered:: None Medication administrations:: Medication Administration History Discontinued Medications Acetaminophen (Acetaminophen 500 Mg Tablet) 1,000 mg PO X1 ONE Stop: 01/11/25 18:33 Last Admin: 01/11/25 18:42 Dose: 1,000 mg Documented By: CN See above Consultations Consultation(s) initiated? (list below): Yes Consultation #1 (Physician, Specialty, Details): Discussed with Dr. Grimes for consult. Reviewed the patient?s HPI, PMHx, lab and/or radiology results. Treatment plan was discussed. Time: 02:00 Diagnosis Vaginal Bleeding Differential Diagnosis: missed , threatened , dysfunctional uterine bleeding, menometrorrhagia, incomplete , ectopic without intrauterine and vaginal bleeding Most likely diagnosis given after review of the tests above:: Miscarriage Admission Indicated Admission indicated?: not indicated Explain why admission is indicated or not indicated:: Patient does not meet admission criteria. Admission Request Was there a request for admission?: No Disposition Plan Disposition Plan: Discharge Discharge Attestation Discharge Attestation: The patient and all family members were given an opportunity to ask questions and understood the discharge instructions. Discharge instructions specifically effects, indications for sooner follow up or return to the emergency department, and the expected course of current diagnosis. Patient condition: Stable Discharge Plan Plan Patient Disposition: HOME (Self Care) Prescriptions/Referrals Prescriptions/Med Rec: New methylergonovine 0.2 mg tablet 0.2 mg PO TID 3 Days Qty: 9 0RF No Action pantoprazole [Protonix] 40 mg tablet,delayed release (DR/EC) 40 mg PO QDAY Qty: 30 0RF dicyclomine 20 mg tablet 20 mg PO QID PRN (Reason: abdominal pain) Qty: 30 0RF acetaminophen 500 mg tablet 500 mg PO Q6H PRN (Reason: pain) Qty: 14 0RF Referrals: Andre Gardiner MD [Primary Care Provider] - In 1 week Problem List Clinical Impression: Miscarriage Patient/Caregiver Discharge Instructions Education Materials: ED MISCARRIAGE Completed Additional Instructions: Follow up with your OB doctor next week for follow up Print Language: South Korean Stand Alone Forms: Kathi Award Info., Patient Portal Info Letter
[2025-01-12 00:37] VITALS: BP 129/86; PULSE 72; RESP 15; TEMP 36.7; O2SAT 99
[2025-01-12 01:31] LABS: Basophils % (Auto) 0 % (0-2.5); Eosinophils # (Auto) 0.1 Thou/mm3 (0.0-0.5); Eosinophils % (Auto) 1 % (0-10); Hematocrit 33.5 % (36.0-46.0); Hemoglobin 11.6 g/dL (12.0-16.0); Immature Granulocytes % (Auto) 0 % (0-0); Immature Granulocytes Auto 0.03 Thou/mm3 (0.00-0.00); Lymphocytes # (Auto) 3.1 Thou/mm3 (1.0-4.8); Lymphocytes % (Auto) 29 % (10-50); Mean Corpuscular HGB Conc 34.6 g/dl (31.0-37.0); Mean Corpuscular Hemoglobin 28.9 pg (25.0-35.0); Mean Corpuscular Volume 84 fL (80-100); Monocytes # (Auto) 0.6 Thou/mm3 (0.0-0.8); Monocytes % (Auto) 6 % (0-12); Neutrophils # (Auto) 6.7 Thou/mm3 (1.8-7.7); Neutrophils % (Auto) 63 % (37-80); Nucleated Red Blood Cell % 0 /100 WBC (0); Platelet Count 251 Thou/mm3 (140-440); RDW Standard Deviation 39.8 fL (36.4-46.3); Red Blood Count 4.01 Miln/mm3 (4.00-5.20); White Blood Count 10.6 Thou/mm3 (3.6-11.0)
--- NOTE | 2025-01-12 02:46 | PD.GYNCONS ---
PHOTOGRAPHIC PROCESS WORKER HPI Data of Consult Patient: new to practice Consult date: 01/12/25 Requesting Physician: Dr. Christy Dhaliwal Primary Care Provider: Andre Gardiner MD Family Provider: MELT HOUSE SUPERVISOR: DR Esparza Consult Narrative Reason for consult: vaginal bleeding and early complication History of present illness: The patient is a 39-year-old -0-0-1 LMP 11 weeks ago with an ultrasound 01/10/2025 showing a missed AB measuring 6 weeks with no cardiac activity. Patient presented to the ER around 5 PM on 01/11/2025 with heavy vaginal bleeding. She stated she soaked 4 maxi pads at home and then soaked about 5 while she was waiting. I was called to evaluate the patient at 2:00 in the morning on 01/12/2025. By this time, the patient had an ultrasound revealing a thickened endometrium with no intrauterine gestation seen. Dr. Dhaliwal had recently seen the patient and performed a speculum exam and teased out some tissue. The patient's hemoglobin when she was admitted to the ER was 13 and dropped to an 11 after approximately 8 hours of being in the ER. The patient's blood pressure and pulse remained stable. I performed a bedside pelvic exam on the patient in the ER her cervix is fingertip dilated and she is not passing large amounts of clots or any tissue at this point. I was called down by Dr. Dhaliwal to evaluate the patient and see if she needed to go to the OR for a dilation curettage and I do not feel this is necessary at this time. cc:: cc: Meds Home Medications and Allergies Allergies Allergy/AdvReac Type Severity Reaction Status Date / Time No Known Allergies Allergy Verified 01/11/25 17:56 Exam - PHOTOGRAPHIC PROCESS WORKER Vital Signs Temp Pulse Resp BP Pulse Ox O2 Del Method 98.1 F 72 15 129/86 H 99 Room Air 01/12/25 00:37 01/12/25 00:37 01/12/25 00:37 01/12/25 00:37 01/12/25 00:37 01/12/25 00:37 Narrative Exam Patient is resting comfortably in bed. Blood pressure when I was seeing the patient was a 115/74 pulse was in the 80s. Constitutional Constitutional: no acute distress and cooperative Routine Abdominal Exam Comments: Abdomen soft nontender pelvic exam reveals her cervix to be fingertip dilated ,uterus anteverted and nontender not markedly enlarged no adnexal masses. Speculum exam deferred as it was just performed by Dr. DHALIWAL PHOTOGRAPHIC PROCESS WORKER - Results Labs 01/12/25 01:11 01/11/25 19:09 Labs: Short CBC 01/11/25 01/12/25 Range/Units 19:09 01:11 WBC 10.9 10.6 (3.6-11.0) Thou/mm3 Hgb 13.1 11.6 L (12.0-16.0) g/dL Hct 38.4 33.5 L (36.0-46.0) % Plt Count 206 D 251 D (140-440) Thou/mm3 BMP 01/11/25 19:09 Sodium 137 Potassium 4.2 D Chloride 106 Carbon Dioxide 19.5 L BUN 5 L Creatinine 0.8 Glucose 108 H Calcium 9.5 Liver Function 01/11/25 Range/Units 19:09 Total Bilirubin 0.3 (0.3-1.2) mg/dL AST 26 (0-34) U/L ALT 16 (10-49) U/L Alkaline Phosphatase 77 (46-116) U/L Albumin 4.6 (3.5-5.0) gm/dL Assessment and Plan Assessment and plan (1) Miscarriage: Status: Acute Assessment and plan: Probable complete AB. The patient most likely passed all of the tissue and the remainder was teased out by the ER physician. At this point patient seems stable for discharge. She was given instructions which included no intercourse tampons douching for 2 weeks no bathtubs or swimming for 2 weeks. She was to follow-up with Dr. Esparza next week. She is to wait 2 normal cycles before trying for again. If she starts hemorrhaging and feels she needs to come back to the ER she is to tell the ER provider that they need to call gynecology and prepare for D&C. I did reveal the ultrasound images and just feels she has a thickened stripe which is normal after a recent miscarriage. I will go ahead and order Methergine to her pharmacy for 3 days as an outpatient to help with uterine involution. I offered Davis for pain, the patient declined she states she will take ibuprofen and Tylenol for pain. The patient is stable to be discharged at this time from a gynecological standpoint.
[2025-01-12 03:10] VITALS: BP 104/70; PULSE 88; RESP 16; TEMP 36.8; O2SAT 98
== END 2025-01-12 03:13 | disposition home or self-care (01) ==
PROVIDERS: Physician Assistant; Emergency Provider Emergency Medicine; PCP Family Medicine
DX: O03.4 Incomplete spontaneous abortion without complication (principal)
CPT/HCPCS: 36415; 76817; 80053; 84702; 85025; 86850; 86900; 86901; 99284; A9270

== ENCOUNTER → 2025-01-16 | Outpatient (CLI) | payer OTHER, SELFPAY ==
[2025-01-16 12:04] LABS: Beta HCG,Quantitative 1431 mIU/mL (<5.0)
== END | disposition home or self-care (01) ==
LOC: COPL 10:24
PROVIDERS: PCP Family Medicine; Referring Provider Obstetrics & Gynecology; Visit Provider Obstetrics & Gynecology
DX: O03.9 Complete or unspecified spontaneous abortion without complication (principal)
CPT/HCPCS: 36415; 84702

== ENCOUNTER → 2025-01-25 | Outpatient (CLI) | payer OTHER, SELFPAY ==
--- NOTE | 2025-01-25 10:16 | XR_ITS ---
Examination: PA lateral chest 2 views TECHNIQUE: Upright PA lateral chest 2 views Date and time: January 25, 2025 1030 hours INDICATIONS: Chest pain shortness of breath beginning yesterday. FINDINGS: Prominent pneumonia left base Normal heart size Right lung clear IMPRESSION: Prominent pneumonia left base
[2025-01-25 11:24] LABS: Basophils # (Auto) 0.0 Thou/mm3 (0.0-0.2); Basophils % (Auto) 0 % (0-2.5); Eosinophils # (Auto) 0.0 Thou/mm3 (0.0-0.5); Eosinophils % (Auto) 0 % (0-10); Hematocrit 34.5 % (36.0-46.0); Hemoglobin 11.6 g/dL (12.0-16.0); Immature Granulocytes Auto 0.05 Thou/mm3 (0.00-0.00); Lymphocytes # (Auto) 1.3 Thou/mm3 (1.0-4.8); Lymphocytes % (Auto) 15 % (10-50); Mean Corpuscular HGB Conc 33.6 g/dl (31.0-37.0); Mean Corpuscular Hemoglobin 28.2 pg (25.0-35.0); Mean Corpuscular Volume 84 fL (80-100); Monocytes # (Auto) 0.7 Thou/mm3 (0.0-0.8); Monocytes % (Auto) 7 % (0-12); Neutrophils # (Auto) 7.0 Thou/mm3 (1.8-7.7); Neutrophils % (Auto) 77 % (37-80); Nucleated Red Blood Cell # 0.00 Thou/mm3 (0.00-0.00); Nucleated Red Blood Cell % 0 /100 WBC (0); Platelet Count 259 Thou/mm3 (140-440); RDW Standard Deviation 39.8 fL (36.4-46.3); Red Blood Count 4.11 Miln/mm3 (4.00-5.20); White Blood Count 9.1 Thou/mm3 (3.6-11.0)
[2025-01-25 11:34] LABS: Beta HCG,Quantitative 52 mIU/mL (<5.0)
[2025-01-25 11:52] LABS: Sed Rate (ESR) 26 mm/hr (0-20)
[2025-01-25 13:11] LABS: Cocci Serology, IgM Negative (Negative)
[2025-01-26 07:21] LABS: Cocci Serology, IgG Negative (Negative)
== END | disposition home or self-care (01) ==
LOC: COPL 10:01
PROVIDERS: PCP Family Medicine; Referring Provider Family Medicine; Visit Provider Radiology Diagnostic Radiology
DX: J18.9 Pneumonia, unspecified organism (principal); B38.1 Chronic pulmonary coccidioidomycosis; D50.0 Iron deficiency anemia secondary to blood loss (chronic); N91.2 Amenorrhea, unspecified
CPT/HCPCS: 36415; 71046; 84702; 85025; 85652; 86331; 86635

== ENCOUNTER → 2025-04-16 | Outpatient (CLI) | payer OTHER, SELFPAY ==
[2025-04-16 10:43] LABS: Sed Rate (ESR) 2 mm/hr (0-20)
[2025-04-16 15:11] LABS: RA Screen Negative (Negative)
[2025-04-19 06:24] LABS: ANA Screen, IFA NEGATIVE (NEGATIVE)
== END | disposition home or self-care (01) ==
LOC: COPL 09:25
PROVIDERS: PCP Family Medicine; Referring Provider Family Medicine; Visit Provider Family Medicine
DX: M79.10 Myalgia, unspecified site (principal)
CPT/HCPCS: 36415; 85652; 86038; 86430

== ENCOUNTER → 2025-05-24 | Outpatient (CLI) | payer OTHER, SELFPAY ==
[2025-05-24 08:32] LABS: Basophils # (Auto) 0.0 Thou/mm3 (0.0-0.2); Basophils % (Auto) 0 % (0-2.5); Eosinophils # (Auto) 0.1 Thou/mm3 (0.0-0.5); Eosinophils % (Auto) 1 % (0-10); Hematocrit 35.2 % (36.0-46.0); Hemoglobin 11.3 g/dL (12.0-16.0); Immature Granulocytes Auto 0.01 Thou/mm3 (0.00-0.00); Lymphocytes # (Auto) 2.0 Thou/mm3 (1.0-4.8); Lymphocytes % (Auto) 27 % (10-50); Mean Corpuscular HGB Conc 32.1 g/dl (31.0-37.0); Mean Corpuscular Hemoglobin 26.7 pg (25.0-35.0); Mean Corpuscular Volume 83 fL (80-100); Monocytes # (Auto) 0.4 Thou/mm3 (0.0-0.8); Monocytes % (Auto) 6 % (0-12); Neutrophils # (Auto) 4.9 Thou/mm3 (1.8-7.7); Neutrophils % (Auto) 66 % (37-80); Nucleated Red Blood Cell # 0.00 Thou/mm3 (0.00-0.00); Nucleated Red Blood Cell % 0 /100 WBC (0); Platelet Count 257 Thou/mm3 (140-440); RDW Standard Deviation 42.7 fL (36.4-46.3); Red Blood Count 4.23 Miln/mm3 (4.00-5.20); White Blood Count 7.5 Thou/mm3 (3.6-11.0)
[2025-05-24 08:51] LABS: Alanine Aminotransferase 14 U/L (10-49); Albumin, Serum 4.5 gm/dL (3.5-5.0); Albumin/Globulin Ratio 2.1 (1.2-2.2); Alkaline Phosphatase 76 U/L (46-116); Anion Gap 10 (7-16); Aspartate Amino Transferase 19 U/L (0-34); BUN/Creatinine Ratio 16 Ratio (12-20); Bilirubin,Total 0.5 mg/dL (0.3-1.2); Blood Urea Nitrogen 11 mg/dL (9-23); Calcium 9.0 mg/dL (8.3-10.6); Calcium (Corrected) 9.0 mg/dL (8.5-10.1); Carbon Dioxide 24.0 mMol/L (20.0-31.0); Cardiac Risk Estimate 2.8 RATIO (3.7-5.6); Chloride 108 mMol/L (98-107); Cholesterol 150 mg/dL (132-200); Creatinine (Component) 0.7 mg/dL (0.6-1.3); Free T4 (Free Thyroxine) 1.27 ng/dL (0.89-1.76); Globulin 2.1 gm/dL (2.3-3.5); Glucose 99 mg/dL (74-106); HDL Cholesterol 54 mg/dL (40-60); LDL Cholesterol,Calculated 78 mg/dL (0-130); Osmolality,Calculated 282 (275-295); Potassium 4.2 mMol/L (3.4-5.1); Sodium 142 mMol/L (136-145); Thyroid Stimulating Hormone 1.36 uIU/mL (0.55-4.78); Total Protein 6.6 gm/dL (5.7-8.2); Triglycerides 91 mg/dL (30-150); eGFR > 60 See Note
[2025-05-24 08:55] LABS: Vitamin B12 606 pg/mL (211-911); Vitamin D 25 Hydroxy Total 17.8 ng/mL (7.3-40.2)
== END | disposition home or self-care (01) ==
LOC: COPL 07:49
PROVIDERS: PCP Family Medicine; Referring Provider Family Medicine; Visit Provider Family Medicine
DX: D50.0 Iron deficiency anemia secondary to blood loss (chronic) (principal); E78.1 Pure hyperglyceridemia; E03.2 Hypothyroidism due to medicaments and other exogenous substances; E53.8 Deficiency of other specified B group vitamins; E55.9 Vitamin D deficiency, unspecified; Z13.1 Encounter for screening for diabetes mellitus
CPT/HCPCS: 36415; 80053; 80061; 82306; 82607; 84439; 84443; 85025

== ENCOUNTER → 2025-05-27 | Outpatient (CLI) | payer OTHER, SELFPAY ==
[2025-05-27 12:10] LABS: HCG,Qualitative Serum Positive
[2025-05-27 12:14] LABS: Basophils # (Auto) 0.0 Thou/mm3 (0.0-0.2); Basophils % (Auto) 1 % (0-2.5); Eosinophils # (Auto) 0.2 Thou/mm3 (0.0-0.5); Eosinophils % (Auto) 2 % (0-10); Hematocrit 35.1 % (36.0-46.0); Hemoglobin 11.4 g/dL (12.0-16.0); Immature Granulocytes Auto 0.01 Thou/mm3 (0.00-0.00); Lymphocytes # (Auto) 2.1 Thou/mm3 (1.0-4.8); Lymphocytes % (Auto) 25 % (10-50); Mean Corpuscular HGB Conc 32.5 g/dl (31.0-37.0); Mean Corpuscular Hemoglobin 26.9 pg (25.0-35.0); Mean Corpuscular Volume 83 fL (80-100); Monocytes # (Auto) 0.5 Thou/mm3 (0.0-0.8); Monocytes % (Auto) 6 % (0-12); Neutrophils # (Auto) 5.6 Thou/mm3 (1.8-7.7); Neutrophils % (Auto) 67 % (37-80); Nucleated Red Blood Cell # 0.00 Thou/mm3 (0.00-0.00); Nucleated Red Blood Cell % 0 /100 WBC (0); Platelet Count 277 Thou/mm3 (140-440); RDW Standard Deviation 42.6 fL (36.4-46.3); Red Blood Count 4.24 Miln/mm3 (4.00-5.20); White Blood Count 8.4 Thou/mm3 (3.6-11.0)
== END | disposition home or self-care (01) ==
LOC: COPL 10:30
PROVIDERS: PCP Family Medicine; Referring Provider Family Medicine; Visit Provider Family Medicine
DX: D50.0 Iron deficiency anemia secondary to blood loss (chronic) (principal)
CPT/HCPCS: 36415; 84703; 85025

== ENCOUNTER → 2025-06-04 | Outpatient (CLI) | payer OTHER, SELFPAY ==
--- NOTE | 2025-06-04 09:59 | XR_ITS ---
Examination: Pelvic ultrasound, transabdominal, complete Technique: Transabdominal ultrasound of the pelvis performed using grayscale imaging Date and time of exam: June 04, 2025, 1015 hours INDICATIONS: Onset pelvic pressure beginning 2 days ago. FINDINGS: Uterus 9.2 cm Intrauterine gestational sac 1.5 cm corresponds to 6 weeks 2 days gestational age No pole, no cardiac activity Right ovary 2.5 cm arterial flow Left ovary 3.5 cm arterial flow, 20 mm involuting cyst IMPRESSION: Empty intrauterine gestational sac corresponding to 6 weeks 2 days gestational age Recommend short-term follow-up transvaginal pelvic sonography to exclude embryonic demise
== END | disposition home or self-care (01) ==
PROVIDERS: PCP Family Medicine; Referring Provider Family Medicine; Visit Provider Family Medicine
DX: R10.20 Pelvic and perineal pain unspecified side (principal)
CPT/HCPCS: 76856

== ENCOUNTER 2025-07-06 16:36 | Emergency (ER) | payer OTHER, SELFPAY ==
[2025-07-06 16:36] VITALS: BP 122/88; PULSE 67; RESP 18; TEMP 36.3; O2SAT 99; BMI 39.9
[2025-07-06 16:52] VITALS: BP 111/77; PULSE 76; RESP 17; TEMP 36.4; O2SAT 100
[2025-07-06 17:04] VITALS: PULSE 78; RESP 20; O2SAT 98
--- NOTE | 2025-07-06 17:10 | PC.NURSE ---
PT BROUGHT IN BY EMS WITH C/O POSSIBLE SEIZURE. PER EMS PT WAS SITTING DOWN GETTING HER HAIR DONE WHEN SHE STIFFENED UP AND BEGAN HAVING A SZ. PT HAS NO HISTORY OF SZ. PT STATES THAT SHE DOES HAVE A SISTER WITH SEIZURE HISTORY. PT ALERT AND ORIENTED AT THIS TIME. NO TRAUMA NOTED. PT IS 10 WKS . PT ON CC MONITOR.
--- NOTE | 2025-07-06 17:12 | EKG_ITS ---
[facility] Test Date: 2025-07-06 Pat Name: FRED SHERIFF Department: Room: - Gender: Female Manager Transfusion: : 1985 Requested By: Koko Stoddard Order Number: [id number] Reading MD: Koko Stoddard Measurements Intervals [place] Rate: 72 P: 44 GA: 187 QRS: 17 QRSD: 92 T: 3 QT: 393 QTc: 431 Interpretive Statements SINUS RHYTHM WITH SINUS ARRHYTHMIA LOW QRS VOLTAGE IN PRECORDIAL LEADS [QRS DEFLECTION < 1.0 mV IN CHEST LEADS] Compared to ECG 01/28/2023 21:36:16 Low QRS voltage now present T-wave abnormality no longer present /store/S0/[id number]/ecg/[id number].pdf
--- NOTE | 2025-07-06 17:22 | EDNOTE_ITS ---
ED Seizures RME/HPI General Chief Complaint: Seizure Stated Complaint: SEIZURES Time Seen by Provider: 07/06/25 17:13 Arrival date/time: 07/06/25 16:36 40-year-old female patient about 10 weeks , came in for evaluation regarding possible near-syncope. Patient was at the salon, somebody is doing her hair, and suddenly patient become unresponsive after patient developed dizziness. Patient does not remember for few seconds. And woke up okay and not having confusion. On my initial evaluation patient is denying any complaints except for mild pinkish vaginal discharge. She had an ultrasound done few days ago by her TYPESETTER PERFORATOR OPERATOR and the baby was okay. Denies any abdominal pain denies any pelvic pain Related Data Previous Rx's ?Medication ?Instructions ?Recorded dicyclomine 20 mg tablet 20 mg PO QID PRN abdominal p ain 12/21/23 #30 tabs pantoprazole 40 mg tablet,delayed 40 mg PO QDAY #30 ta bs 12/21/23 release (Protonix) acetaminophen 500 mg tablet 500 mg PO Q6H PRN pain #14 tabs 12/14/24 Allergies Allergy/AdvReac Type Severity Reaction Status Date / Time No Known Allergies Allergy Verified 01/11/25 17:56 Review of Systems Review of Systems Narrative Review of Systems: Review of system reviewed and within normal limits except mentioned in HPI ED Exam Narrative Physical exam: VITAL SIGNS: Reviewed. GENERAL APPEARANCE: Alert and interactive, follows commands, no acute distress, HEAD AND FACE: Non-traumatic. ENT: PERRL, pink conjunctivitis, eyelid no trauma, Mucous membrane moist. NECK: Supple, nontender, no nuchal rigidity. CHEST: No tenderness, no crepitus, no paradoxical movement, no retractions. LUNGS: Clear, well ventilated, symmetric, no rales, no wheezing, no ronchi, no stridor, good breath sounds bilaterally. HEART: Regular rate, regular rhythm, no murmur, no gallops. ABDOMEN: Soft, positive bowel sounds, nondistended, no guarding, nontender, no rebound, no masses, RECTAL: Deferred. GENITAL: Deferred. NEUROLOGICAL: Gross motor function intact sensory function intact, Appropriate for age. MUSCULOSKELETAL: low back nontender, full range of motion. EXTREMITIES: Nontender, full range of motion. SKIN: Color pink, dry, no rash, no lacerations, no abrasions, no contusions. LYMPHATICS: Deferred. Course Quality Measures none Orders Category Date Time Status EKG (ED ONLY) *Do not use* NOW Care 07/06/25 17:12 Completed Seizure precautions NOW Care 07/06/25 17:12 Active EKG (ED Only) Stat Exams 07/06/25 17:12 Draft EKG (ED Only) Stat Exams 07/06/25 17:16 Ordered CBC [CBC] Stat Lab 07/06/25 17:23 Completed CMP [Comprehensive Metabolic Panel] Stat Lab 07/06/25 17:23 Completed Lactate (Lactic Acid) Stat Lab 07/06/25 17:23 Completed UA, C/S IF [Urinalysis, C/S if Indicated] Stat Lab 07/06/25 20:11 Completed Ringers Lactated 1000 ml [Lactated Ringers] 1,000 ml Med 07/06/25 17:16 Discontinued IV 999 mls/hr Vital Signs Vital signs: Vital Signs Temperature 97.4 F 07/06/25 16:36 Pulse Rate 67 07/06/25 16:36 Respiratory Rate 18 07/06/25 16:36 Blood Pressure 122/88 H 07/06/25 16:36 Pulse Oximetry (%) 99 07/06/25 16:36 Oxygen Delivery Method Room Air 07/06/25 16:36 Seizure MDM Narrative MDM Narrative:: 07/06/25 16:36 40-year-old female patient about 10 weeks , came in for evaluation regarding possible near-syncope. Patient was at the salon, somebody is doing her hair, and suddenly patient become unresponsive after patient developed dizziness. Patient does not remember for few seconds. And woke up okay and not having confusion. On my initial evaluation patient is denying any complaints except for mild pinkish vaginal discharge. She had an ultrasound do ne few days ago by her TYPESETTER PERFORATOR OPERATOR and the baby was okay. Denies any abdominal pain denies any pelvic pain EKG showed sinus rhythm, ventricular rate of 72 bpm, no ST segment elevation depression noted. Patient's workup today all came back normal urinalysis no UTI. No recurrence of syncope noted in the ED patient was walking to the restroom unaided. Stable for charged home. Patient data External records reviewed:: None Clinical information provided by:: patient and family Social determinants that could affect healthcare access:: none Patient has the following chronic illnesses:: None How is presenting disease/condition affected by chronic disease/condition?: exacerbated by Evaluation data The following diagnostics were reviewed and interpreted by me:: lab results and EKG tracing(s) Lab and/or radiology exams considered but not ordered:: None Interpretation Summary: See above Medications / Prescriptions Medications or Prescriptions considered but not ordered:: None Medication administrations:: Medication Administration History Discontinued Medications Lactated Ringer's (Lactated Ringers) 1,000 mls @ 999 mls/hr IV .Q1H1M ONE Stop: 07/06/25 18:16 Last Infusion: 07/06/25 19:10 Dose: Infused Documented By: Admin: 07/06/25 17:33 Dose: 999 mls/hr Documented By: DO IV fluids Consultations Consultation(s) initiated? (list below): No Diagnosis Seizure Differential Diagnosis: other (Syncope vasovagal syncope, dehydration, ) Most likely diagnosis given after review of the tests above:: Vasovagal syncope, Admission Indicated Admission indicated?: not indicated Admission Request Was there a request for admission?: No Disposition Plan Disposition Plan: Discharge Discharge Attestation Discharge Attestation: The patient and all family members were given an opportunity to ask questions and understood the discharge instructions. Discharge instructions specifically effects, indications for sooner follow up or return to the emergency department, and the expected course of current diagnosis. Patient condition: Stable Discharge Plan Plan Patient Disposition: HOME (Self Care) Discharge Disposition comment: Stable Prescriptions/Referrals Prescriptions/Med Rec: No Action pantoprazole [Protonix] 40 mg tablet,delayed release (DR/EC) 40 mg PO QDAY Qty: 30 0RF dicyclomine 20 mg tablet 20 mg PO QID PRN (Reason: abdominal pain) Qty: 30 0RF acetaminophen 500 mg tablet 500 mg PO Q6H PRN (Reason: pain) Qty: 14 0RF Referrals: Andre Gardiner MD [Primary Care Provider, Family Practice] - In 1 week Problem List Clinical Impression: Syncope, vasovagal, Patient/Caregiver Discharge Instructions Discharge Activity: activity as tolerated Education Materials: Diagnosing Syncope Additional Instructions: Thank you for the opportunity for serving you today. You are stable for discharged . You are advised to: Follow-up with your PCP in 1 to 2 days Return to ED for worsening of symptoms Increase oral fluids Print Language: Slovenian Stand Alone Forms: Kathi Award Info., Patient Portal Info Letter PA/WAFFLE MACHINE OPERATOR Supervising Physician PA/WAFFLE MACHINE OPERATOR Supervising Physician: MD Marcel
[2025-07-06 17:29] LABS: Lactate (Lactic Acid) 1.0 mMol/L (0.4-2.0)
[2025-07-06 17:33] LABS: Basophils # (Auto) 0.0 Thou/mm3 (0.0-0.2); Basophils % (Auto) 0 % (0-2.5); Eosinophils # (Auto) 0.1 Thou/mm3 (0.0-0.5); Eosinophils % (Auto) 1 % (0-10); Hematocrit 36.9 % (36.0-46.0); Hemoglobin 12.2 g/dL (12.0-16.0); Immature Granulocytes Auto 0.02 Thou/mm3 (0.00-0.00); Lymphocytes # (Auto) 1.6 Thou/mm3 (1.0-4.8); Lymphocytes % (Auto) 17 % (10-50); Mean Corpuscular HGB Conc 33.1 g/dl (31.0-37.0); Mean Corpuscular Hemoglobin 27.4 pg (25.0-35.0); Mean Corpuscular Volume 83 fL (80-100); Monocytes # (Auto) 0.5 Thou/mm3 (0.0-0.8); Monocytes % (Auto) 5 % (0-12); Neutrophils # (Auto) 7.6 Thou/mm3 (1.8-7.7); Neutrophils % (Auto) 77 % (37-80); Nucleated Red Blood Cell # 0.00 Thou/mm3 (0.00-0.00); Nucleated Red Blood Cell % 0 /100 WBC (0); Platelet Count 244 Thou/mm3 (140-440); RDW Standard Deviation 40.4 fL (36.4-46.3); Red Blood Count 4.46 Miln/mm3 (4.00-5.20); White Blood Count 9.8 Thou/mm3 (3.6-11.0)
[2025-07-06] MEDS: RINGERS LACTATED 1000 ML 1,000 ML 999 ML IV (17:33)
[2025-07-06 17:52] LABS: Alanine Aminotransferase 14 U/L (10-49); Albumin, Serum 4.5 gm/dL (3.5-5.0); Albumin/Globulin Ratio 1.6 (1.2-2.2); Alkaline Phosphatase 76 U/L (46-116); Anion Gap 7 (7-16); Aspartate Amino Transferase 21 U/L (0-34); BUN/Creatinine Ratio 10 Ratio (12-20); Bilirubin,Total 0.4 mg/dL (0.3-1.2); Blood Urea Nitrogen 8 mg/dL (9-23); Calcium 9.3 mg/dL (8.3-10.6); Calcium (Corrected) 9.3 mg/dL (8.5-10.1); Carbon Dioxide 25.9 mMol/L (20.0-31.0); Chloride 107 mMol/L (98-107); Creatinine (Component) 0.8 mg/dL (0.6-1.3); Estimated Creatinine Clearance 117.0 mL/min (>60); Globulin 2.9 gm/dL (2.3-3.5); Glucose 121 mg/dL (74-106); Osmolality,Calculated 278 (275-295); Potassium 3.9 mMol/L (3.4-5.1); Sodium 140 mMol/L (136-145); Total Protein 7.4 gm/dL (5.7-8.2); eGFR > 60 See Note
[2025-07-06 18:11] VITALS: BP 119/67; PULSE 67; RESP 20; O2SAT 100
--- NOTE | 2025-07-06 19:32 | PC.NURSE ---
Patient report received from Lakisha CARMONA. Patient is awake and alert resting in bed at its lowest position with wheels locked and call light within reach, family member at the bedside. Patient care assumed at this time.
[2025-07-06 20:15] LABS: Collection Type, Urine Clean Catch
[2025-07-06 20:19] VITALS: BP 130/88; PULSE 67; RESP 18; TEMP 36.8; O2SAT 100
[2025-07-06 20:22] LABS: Bacteria,Urine Rare; Bilirubin,Urine Negative (Negative); Blood,Urine 3+ (Negative); Clarity,Urine Clear (Clear/Hazy); Color,Urine Lt-Yellow (Lt Yel-Yel); Culture Indicated,Urine Not Indicated; Glucose, Urine Negative (Negative); Ketones,Urine Negative (Negative); Leukocyte Esterase,Urine Negative (Negative); Nitrite,Urine Negative (Negative); PH,Urine 7.0 (5.0-7.0); Protein,Urine Negative (Neg - Trace); RBC,Urine 7 /hpf (0-3); Specific Gravity,Urine 1.012 (1.001-1.035); Squamous Epithelial Cell,Urine 2 /hpf (0-5); Urobilinogen,Urine Negative mg/dL (0.0-1.0); WBC,Urine 4 /hpf (0-5)
[2025-07-06 20:56] VITALS: BP 145/88; PULSE 86; RESP 18; TEMP 36.7; O2SAT 98
== END 2025-07-06 20:58 | disposition home or self-care (01) ==
PROVIDERS: Nurse Practitioner Family; Emergency Provider Emergency Medicine; PCP Family Medicine
DX: O99.891 Other specified diseases and conditions complicating pregnancy (principal); R55 Syncope and collapse; I49.8 Other specified cardiac arrhythmias; Z3A.10 10 weeks gestation of pregnancy
CPT/HCPCS: 36415; 80053; 81001; 83605; 85025; 93005; 96360; 96361; 99283; J7120